=== PATIENT | female | born 1975 | race Native Hawaiian/Other Pacific Islander ===

== ENCOUNTER 2016-07-22 16:44 | Outpatient (CLI) | payer BC | END 2016-07-22 19:26 | disposition home or self-care (01) | LOC: RAD 16:44 | DX: M54.12 Radiculopathy, cervical region (principal) ==

== ENCOUNTER 2017-07-18 09:28 | Outpatient (CLI) | payer BC | END 2017-07-18 22:44 | disposition home or self-care (01) | LOC: US 09:28 | DX: K85.90 Acute pancreatitis without necrosis or infection, unspecified (principal) ==

== ENCOUNTER 2019-07-28 15:31 | Emergency (ER) | payer OTHER ==
[~2019-07-28] VITALS: Ht 162.6 cm; Wt 99.8 kg
[2019-07-28 16:25] LABS: PLATELET COUNT 286 K/uL (152-353)
[2019-07-28 16:31] LABS: POTASSIUM 3.4 mmol/L (3.6-5.2)
[2019-07-28 19:34] VITALS: BP 129/84; TEMP 97.3
== END 2019-07-28 19:34 | disposition home or self-care (01) ==
LOC: ED 15:31
PROVIDERS: Emergency Medicine
DX: R10.31 Right lower quadrant pain (principal)
CPT/HCPCS: 80053; 81000; 82150; 83690; 85027; 96374; 96375; 99284; J1885; J2405; Q9963

== ENCOUNTER 2020-02-10 12:38 | Observation (INO) | payer OTHER ==
[2020-02-10] VITALS (13 sets, daily range): BP systolic 116–156; BP diastolic 65–91; TEMP 98
[~2020-02-10] VITALS: Ht 167.6 cm; Wt 95.4 kg
[2020-02-10 13:26] LABS: PLATELET COUNT 318 K/uL (152-353)
[2020-02-10 13:27] LABS: POTASSIUM 4.5 mmol/L (3.6-5.2); SODIUM 135 mmol/L (136-145)
[2020-02-10 13:45] LABS: PARTIAL THROMBOPLASTIN TIME 24.3 SECONDS (24.5-33.6)
[2020-02-11] VITALS: BP 99/66; TEMP 98
[2020-02-11 02:27] VITALS: BP 140/72; TEMP 97.7; Ht 167.6 cm; Wt 95.4 kg
[2020-02-11 04:00] VITALS: BP 69/65; BP 95/65; TEMP 98; TEMP 98.1
[2020-02-11 06:06] LABS: SODIUM 139 mmol/L (136-145)
[2020-02-11 06:23] LABS: PLATELET COUNT 253 K/uL (152-353)
[2020-02-11 08:00] VITALS: BP 121/68; TEMP 98.4
[2020-02-11] MEDS ORDERED: INDOMETHACIN50 MG PO (11:52)
[2020-02-11 12:00] VITALS: BP 123/64; TEMP 98.3
== END 2020-02-11 13:20 | disposition home or self-care (01) ==
LOC: ED 12:38 → MED/SURG 17:05
PROVIDERS: ADMIT Emergency Medicine Emergency Medical Services; ATTEND Internal Medicine Endocrinology, Diabetes & Metabolism
DX: R07.89 Other chest pain (principal); I10 Essential (primary) hypertension; E66.8 Other obesity; M94.0 Chondrocostal junction syndrome [Tietze]
CPT/HCPCS: 36415; 80048; 80053; 82550; 84484; 85027; 85610; 85730; 93005; 96374; 96375; 96376; 99220; 99284; G0378; J1885; J2270; J2405; Q9963

== ENCOUNTER 2020-11-06 15:25 | Outpatient (CLI) | payer BC ==
[~2020-11-06 15:25] MED LIST: INDOMETHACIN50 MG PO
== END 2020-11-06 21:19 | disposition home or self-care (01) ==
LOC: RAD 15:25
PROVIDERS: ATTEND Nurse Practitioner
DX: R60.0 Localized edema (principal)

== ENCOUNTER 2021-01-26 08:56 | Outpatient (CLI) | payer BC | END 2021-01-26 20:13 | disposition home or self-care (01) | LOC: NM 08:56 | PROVIDERS: ATTEND Internal Medicine | DX: G90.50 Complex regional pain syndrome I, unspecified (principal) | CPT/HCPCS: A9561 ==

== ENCOUNTER 2021-04-27 11:50 | Outpatient (CLI) | payer BC | END 2021-04-27 20:04 | disposition home or self-care (01) | LOC: RAD 11:50 | PROVIDERS: ATTEND Registered Nurse | DX: Z09 Encounter for follow-up examination after completed treatment for conditions other than malignant neoplasm (principal); Z87.01 Personal history of pneumonia (recurrent); R05.9 Cough, unspecified; R06.02 Shortness of breath ==

== ENCOUNTER 2021-12-13 13:52 | Emergency (ER) | payer OTHER ==
[~2021-12-13] VITALS: Ht 167.6 cm; Wt 95.3 kg
[2021-12-13 13:52] VITALS: TEMP 97.2
[2021-12-13 14:15] LABS: PLATELET COUNT 307 K/uL (152-353)
[2021-12-13 14:22] LABS: POTASSIUM 3.9 mmol/L (3.6-5.2); SODIUM 138 mmol/L (136-145)
[2021-12-13 15:00] VITALS: BP 135/84
[2021-12-13] MEDS ORDERED: MOBIC7.5 M1 PO (15:00)
[2021-12-13] MEDS ORDERED: LISITAB PO (15:00)
== END 2021-12-13 15:07 | disposition home or self-care (01) ==
LOC: ED 13:52
PROVIDERS: Emergency Medicine
DX: R07.89 Other chest pain (principal)
CPT/HCPCS: 80053; 83880; 84484; 85027; 85379; 85610; 85730; 93005; 96374; 99284; J1885

== ENCOUNTER 2022-08-02 09:23 | Outpatient (CLI) | payer OTHER ==
[~2022-08-02 09:23] MED LIST changes: +LISITAB PO; +MOBIC7.5 M1 PO
== END 2022-08-02 18:57 | disposition home or self-care (01) ==
LOC: CT 09:23
PROVIDERS: ATTEND Nurse Practitioner Family
DX: R22.2 Localized swelling, mass and lump, trunk (principal)
CPT/HCPCS: Q9963